=== PATIENT | female | born 1940 | race Caucasian/White ===

== ENCOUNTER 2018-02-24 02:43 | Emergency (ER) | payer MEDICARE, OTHER ==
[2018-02-24 04:19] LABS: ABS Basophils 0.2 10^3/ul (0-0.2); ABS Eosinophils 0.4 10^3/ul (0-0.6); ABS Lymphocytes 1.5 10^3/ul (1.0-4.8); ABS Monocytes 0.6 10^3/ul (0-0.8); ABS Neutrophils 8.8 10^3/ul (1.5-7.7); ABS Nucleated RBC 0 10^3/ul; Eosinophil % 3.9 % (0-6); Hematocrit 37 % (35-47); Hemoglobin 12.8 g/dl (12.0-16.0); Lymphocyte % 13.1 % (25-47); Mean Corpuscular HGB Conc 34 g/dl (31-36); Mean Corpuscular Hemoglobin 32 pg (27-31); Mean Corpuscular Volume 94 fL (80-97); Mean Platelet Volume 7.7 um3 (7.4-10.4); Nucleated Red Blood Cells % 0.1; Platelet Count 559 10^3/ul (150-450); Red Blood Count 3.98 10^6/ul (4.00-5.40); Red Cell Distribution Width 15 % (10.5-15); White Blood Count 11.4 10^3/ul (3.5-10.8)
[2018-02-24 04:38] LABS: EGFR Non-African American 119.6 (>60)
--- NOTE | 2018-02-24 04:41 | ED ---
Abdominal Pain/Female - HPI Summary HPI Summary: This patient is a 77 year old F presenting to [facility] accompanied by with a chief complaint of umbilical abd pain that began at 2300 yesterday. Pt reports eating a rich dinner prior to the pain at 1900. The patient rates the pain 7/10 in severity. Symptoms aggravated by nothing. Symptoms alleviated by nothing. Patient reports nausea. Patient denies vomiting and diarrhea. - History of Current Complaint Chief Complaint: EDAbdPain Stated Complaint: ABD PAIN Time Seen by Provider: 02/24/18 04:34 Hx Obtained From: Patient ?: No Onset/Duration: Sudden Onset, Lasting Hours, Still Present Timing: Constant Severity Initially: Moderate Severity Currently: Moderate Pain Intensity: 7 Pain Scale Used: 0-10 Numeric Aggravating Factor(s): Nothing Alleviating Factor(s): Nothing Associated Signs and Symptoms: Positive: Nausea. Negative: Vomiting, Diarrhea Allergies/Adverse Reactions: Allergies Allergy/AdvReac Type Severity Reaction Status Date / Time aspirin Allergy Unknown Verified 02/24/18 02:48 Reaction Details ciprofloxacin [From Cipro] Allergy Unknown Verified 02/24/18 02:48 Reaction Details PMH/Surg Hx/FS Hx/Imm Hx Previously Healthy: No Endocrine/Hematology History: Denies: Hx Diabetes Cardiovascular History: Denies: Hx Hypertension, Hx Myocardial Infarction Opthamlomology History: Denies: Hx Legally Blind EENT History: Denies: Hx Deafness - Surgical History Surgery Procedure, Year, and Place: Colon resection Infectious Disease History: No Infectious Disease History: Denies: Traveled Outside the [place] in Last 30 Days - Family History Known Family History: Negative: Seizure Disorder - Social History Occupation: Retired Lives: With Family Alcohol Use: Occasionally Hx Substance Use: No Substance Use Type: Reports: None Hx Tobacco Use: No Smoking Status (MU): Former Smoker Review of Systems Negative: Fever Positive: Abdominal Pain, Nausea. Negative: Vomiting, Diarrhea All Other Systems Reviewed And Are Negative: Yes Physical Exam - Summary Physical Exam Summary: Appearance: Well-appearing, Well-nourished, lying in bed comfortably Skin: Warm, dry, no obvious rash Eyes: sclera anicteric, no conjunctival pallor ENT: mucous membranes moist, pharynx appears normal Neck: Supple, nontender Respiratory: Clear to auscultation, no signs of respiratory distress Cardiovascular: Normal S1, S2. No murmurs. Normal distal pulses in tibial and radial bilaterally. Abdomen: Soft, nontender, normal active bowel sounds present Musculoskeletal: Mid-epigastric abd tenderness and some RUQ tenderness, Strength /ROM Intact Neurological: A&Ox3, awake and alert, mentation is normal, speech is fluent and appropriate Psychiatric: affect is normal, does not appear anxious or depressed Triage Information Reviewed: Yes Vital Signs On Initial Exam: Initial Vitals Temp Pulse Resp BP Pulse Ox 98.2 F 69 16 161/70 97 02/24/18 02:49 02/24/18 02:49 02/24/18 02:49 02/24/18 02:49 02/24/18 02:49 Vital Signs Reviewed: Yes Diagnostics - Vital Signs Vital Signs Temp Pulse Resp BP Pulse Ox 02/24/18 02:49 98.2 F 69 16 161/70 97 - Laboratory Lab Results: Lab Results 02/24/18 02/24/18 Range/Units 04:08 04:08 WBC 11.4 H (3.5-10.8) 10^3/ul RBC 3.98 L (4.00-5.40) 10^6/ul Hgb 12.8 (12.0-16.0) g/dl Hct 37 (35-47) % MCV 94 (80-97) fL MCH 32 H (27-31) pg MCHC 34 (31-36) g/dl RDW 15 (10.5-15) % Plt Count 559 H (150-450) 10^3/ul MPV 7.7 (7.4-10.4) um3 Neut % (Auto) 76.6 (38-83) % Lymph % (Auto) 13.1 L (25-47) % [place] % (Auto) 4.9 (0-7) % Eos % (Auto) 3.9 (0-6) % Baso % (Auto) 1.5 (0-2) % Absolute Neuts (auto) 8.8 H (1.5-7.7) 10^3/ul Absolute Lymphs (auto) 1.5 (1.0-4.8) 10^3/ul Absolute Monos (auto) 0.6 (0-0.8) 10^3/ul Absolute Eos (auto) 0.4 (0-0.6) 10^3/ul Absolute Basos (auto) 0.2 (0-0.2) 10^3/ul Absolute Nucleated RBC 0 10^3/ul Nucleated RBC % 0.1 Lactic Acid 1.3 (0.5-2.0) mmol/L Result Diagrams: 02/24/18 04:08 02/24/18 04:08 Lab Statement: Any lab studies that have been ordered have been reviewed, and results considered in the medical decision making process. Abdominal Pain Fem Course/Dx - Diagnoses Provider Diagnoses: Epigastric abdominal pain, Gastritis Discharge - Sign-Out/Discharge Documenting (check all that apply): Sign-Out Patient Signing out patient TO: Remigio Agrawal Receiving patient FROM: Jorge Tamayo - Discharge Plan Condition: Improved Disposition: HOME Prescriptions: Famotidine TAB* [Pepcid 20 MG TAB*] 20 mg PO BID #20 tab Omeprazole 40 mg PO DAILY #30 capsule. Sucralfate [Carafate] 1 gm PO QID #40 tablet Patient Education Materials: Gastritis (ED), Epigastric Pain (ED) Referrals: [facility] [Provider Group] Additional Instructions: Avoid alcohol, anti-inflammatory medications, spicy foods or anything that aggravates her stomach. Return with fever, vomiting blood, blood in stools, increased pain, worse or other concerns. - Billing Disposition and Condition Condition: IMPROVED Disposition: Home
[2018-02-24] MEDS ORDERED: Ondansetron INJ* 2 MG/ML VIAL IV ONE (04:42)
[2018-02-24] MEDS ORDERED: Morphine VIAL* 4 MG/ML VIAL (1 ml vial) IV ONE (04:42)
[2018-02-24 07:04] LABS: Urine Appearance Clear; Urine Blood Negative (Negative); Urine Color Straw; Urine Ketones Negative (Negative); Urine Protein Negative (Negative); Urine Urobilinogen Negative (Negative)
--- NOTE | 2018-02-24 07:09 | ED ---
Progress - Progress Note Progress Note: Assumed care from Dr. Stevens. Patient is pending gallbladder ultrasound which was ultimately negative. Patient had epigastric pain only. This was treated with GI treatments with full relief. She was discharged on GI meds. - Results/Orders Results/Orders: US gall bladder: Negative Radiologist: Normal US of the RUQ. Dr. Agrawal has reviewed this report. Re-Evaluation - Re-Evaluation First Eval Re-Evaluation Time: 08:25 Change: Improved Comment: endorses mild abd pain, but upon exam no TTP, big midline and RUQ scars , no pulsatile abd mass. Second Eval Re-Evaluation Time: 08:57 Change: Improved - The GI tx improved her sx. Course/Dx - Diagnoses Provider Diagnoses: Epigastric abdominal pain, Gastritis Discharge - Sign-Out/Discharge Documenting (check all that apply): Patient Departure - discharge - Discharge Plan Condition: Improved Disposition: HOME Prescriptions: Famotidine TAB* [Pepcid 20 MG TAB*] 20 mg PO BID #20 tab Omeprazole 40 mg PO DAILY #30 capsule. Sucralfate [Carafate] 1 gm PO QID #40 tablet Patient Education Materials: Gastritis (ED), Epigastric Pain (ED) Referrals: [facility] [Provider Group] Additional Instructions: Avoid alcohol, anti-inflammatory medications, spicy foods or anything that aggravates her stomach. Return with fever, vomiting blood, blood in stools, increased pain, worse or other concerns. - Billing Disposition and Condition Condition: IMPROVED Disposition: Home
[2018-02-24] MEDS ORDERED: Sucralfate TAB* 1 GM PO ONE (08:28)
[2018-02-24] MEDS ORDERED: Lidocaine 2% VISCOUS* 15 ML UDC PO ONE (08:28)
[2018-02-24] MEDS ORDERED: Al Hydrox/Mg Hydrox/Simet LIQ* 30 ML UDC PO ONE (08:28)
[2018-02-24] MEDS ORDERED: Famotidine TAB* 20 MG PO ONE (08:28)
--- NOTE | 2018-02-24 08:32 | RAD ---
HISTORY: Upper abdominal pain COMPARISONS: None TECHNIQUE: Multiple transverse and longitudinal ultrasound images were obtained of the right upper quadrant. FINDINGS: LIVER: The liver is normal in dimensions and echogenicity. Normal hepatic and portal venous blood flow is duplicated with color flow imaging. There is no gross intrahepatic biliary duct dilatation. GALLBLADDER AND EXTRAHEPATIC BILIARY DUCT: The gallbladder is normal in appearance without intraluminal stones or other soft tissue masses. There is no pericholecystic fluid or gallbladder wall thickening. The common bile duct measures a maximum diameter of 5 mm. The private duty rn reports a negative sonographic Muniz sign. PANCREAS: The portions of the pancreas not obscured by bowel gas are normal in appearance. RIGHT KIDNEY: The right kidney is normal in size, morphology and echogenicity. AORTA AND IVC: The visualized portions are normal in appearance and not pathologically dilated. IMPRESSION: Normal ultrasound of the right upper quadrant.
[2018-02-24 09:16] VITALS: BP 178/80
== END 2018-02-24 09:15 | disposition home or self-care (01) ==
LOC: ED 02:43
DX: R10.13 Epigastric pain (principal); K29.70 Gastritis, unspecified, without bleeding; Z79.82 Long term (current) use of aspirin
CPT/HCPCS: 36415; 76705; 80053; 81003; 83605; 83690; 85025; 86140; 96374; 96375; 99283; A9270-GY; J2270; J2405